=== PATIENT | female | born 1950 | race Caucasian/White ===

== ENCOUNTER 2017-02-13 09:53 | Day surgery (SDC) | payer MEDICARE, OTHER ==
[2017-02-12 11:47] LABS: HEMOGLOBIN 12.3 g/dL (12.0-16.0)
[2017-02-12 12:04] LABS: A/G RATIO 0.9 (0.7-1.9); ALBUMIN 3.3 G/DL (3.5-5.0); ALKALINE PHOSPHATASE 117 U/L (45-117); BUN (BLOOD UREA NITROGEN) 8 MG/DL (6-23); CALCIUM, SERUM 8.4 MG/DL (8.5-10.4); CHLORIDE, SERUM 101 MMOL/L (96-112); CO2 (CARBON DIOXIDE) 30 MMOL/L (24-34); CREATININE 0.69 MG/DL (0.55-1.02); GFR AFRICAN AMERICAN 106 ML/MIN (>=60); GFR NON AFRICAN AMERICAN 91 ML/MIN (>=60); GLOBULIN 3.6 G/DL (2.5-4.1); GLUCOSE, SERUM 200 MG/DL (60-99); POTASSIUM, SERUM 4.2 MMOL/L (3.5-5.3); SGOT(AST) 34 U/L (5-40); SGPT(ALT) 33 U/L (5-65); SODIUM, SERUM 139 MMOL/L (135-148); TOTAL BILIRUBIN 0.6 MG/DL (0-1.2); TOTAL PROTEIN 6.9 G/DL (6.0-8.5)
--- NOTE | ~2017-02-13 | OP ---
Record Of Operation [facility] [address] [place]. [address] NAME: JUVENTINO LOPEZ CLAY : 52 STATUS : REG [facility] PAT#: [id number] AGE: 66 ADM/REG DATE : 02/13/17 MR#: [id number] REPORT SERV DATE: 02/13/17 DICTATED BY: JULIENNE WATSON DATE: 02/13/17 REPORT STATUS : Draft TRANSCRIBED BY: MODMarlen DATE: 02/13/17 DATE OF PROCEDURE: PREOPERATIVE DIAGNOSIS: Left breast clinically inflammatory breast cancer. POSTOPERATIVE DIAGNOSIS: Left breast clinically inflammatory breast cancer. PROCEDURES: 1. Placement of a right chest wall venous port. 2. Intraoperative fluoroscopy with interpretation. 3. Intraoperative ultrasound for vein access. INDICATION FOR THE PROCEDURE: Ms Lopez is a healthy 66-year-old female, who has erythema and a large mass with palpable nodes in the left axilla. This is a clinically inflammatory breast cancer. Biopsy was performed in my office showing a node positive grade 3, ER/[place] negative, HER2 positive breast cancer with a gross fraction of over 75%. This is a very high growth rate and a very aggressive cancer. The patient has already seen Medical Oncology. She has had a PET scan showing the breast cancer as well as lymph node involvement, but no obvious metastatic disease. The patient will be starting chemotherapy on Saturday. Plan today is for port placement on the right side. OPERATIVE FINDINGS: After appropriate consent was on the chart, the patient was taken to the operating room in supine position. She was placed under monitored anesthesia without complication. The ultrasound was placed on the right neck and the right internal jugular vein noted in its normal anatomic position and patent. The bilateral chest wall and neck were prepped and draped in sterile fashion. The draped ultrasound probe was again utilized to visualize the right internal jugular vein. The soft tissue and skin overlying the vein was anesthetized with 1% lidocaine plain. A Seldinger needle was then utilized with a single pass to access the vein. Nonpulsatile venous appearing blood was noted in the syringe. The syringe was removed and the wire was passed with ease. The wire was noted to be in good position in the vena cava using fluoroscopy. The needle was removed and the wire was secured to the drapes for later use. The local anesthetic was utilized to anesthetize the port pocket. It was made with a #15 blade. Sharp dissection was carried down with Bovie cauterization. Stay sutures were placed at the 3 o'clock and 9 o'clock position of 3- 0 Prolene. These sutures were secured for later use. An 11-blade was utilized to lengthen the access site in the neck. The tunneling device was utilized to create a tunnel between the port site and the access site. The catheter was pulled through the new tunnel without issue. The dilator with sheath were then placed over the wire with constant movement of the wire. The vein was dilated. The dilator and wire were removed from the sheath leaving the sheath in the vein. The catheter was placed into the sheath without issue, and the sheath torn away. Fluoroscopy was utilized to pull the catheter tip back to the atriocaval junction. It was then cut to length at the port site and secured to the port with the securing device. The port was noted to aspirate and flush with ease. It was packed with heparinized saline. The port was secured into the port pocket with the two stay sutures. The wound was irrigated and hemostasis was achieved. A small [place] in the neck was reapproximated using a buried 4-0 Monocryl stitch. The skin was then reapproximated at the Record Of Operation [address] [address] NAME: JUVENTINO LOPEZ CLAY : 52 STATUS : REG [facility] PAT#: [id number] AGE: 66 ADM/REG DATE : 02/13/17 MR#: [id number] REPORT SERV DATE: 02/13/17 DICTATED BY: JULIENNE WATSON DATE: 02/13/17 REPORT STATUS : Draft TRANSCRIBED BY: MODL DATE: 02/13/17 port site with two layers of Monocryl. The skin was cleansed and dried. Dermabond was overlaid. The Dermabond was allowed to dry, and Telfa and Tegaderm were overlaid. The patient was awoken from anesthesia without complication, taken to the PACU in stable condition for recovery. All counts were correct at the end of the case. ESTIMATED BLOOD LOSS: 20 mL. COMPLICATIONS: None. SPECIMENS: None. A chest x-ray will be obtained in recovery to ensure no pneumo or hemothorax. The catheter tip appears to be in good position. USHA/LUPE Julienne Watson MD / [id number] CC: MD Be Wilson M.D. Michael Stipanov, M.D. [facility]
[~2017-02-13 09:53] MED LIST: AMB10 PO; ATEN25 PO; COZ50 PO; EFFEXOR XR150 MG PO; FISH-EPA1000 MG PO; GLUCPH PO; IBU-200200 MG PO; LEVSINTAB SL; ZANTAC150 MG PO
[2017-02-22] MEDS ORDERED: MD ANDERSON PO (16:09)
[2017-02-22] MEDS ORDERED: NORCO1 TA1 PO (16:10)
[2017-02-22] MEDS ORDERED: FISH OIL PO (16:10)
[2017-02-22] MEDS ORDERED: ADVIL PO (16:10)
[2017-02-22] MEDS ORDERED: AMB10 PO (16:11)
[2017-02-22] MEDS ORDERED: CHEMOTHERAPY IV (16:11)
[2017-02-22] MEDS ORDERED: BION TEARS OPH (16:11)
[2017-02-22] MEDS ORDERED: AMIT25 PO (16:12)
[2017-02-22] MEDS ORDERED: FORTAMET500 MG PO (16:12)
[2017-02-22] MEDS ORDERED: EFFEXOR XR150 MG PO (16:12)
[2017-02-22] MEDS ORDERED: COZ50 PO (16:13)
[2017-02-22] MEDS ORDERED: FLUCON2 PO (16:13)
[2017-02-22] MEDS ORDERED: ATEN50 PO (16:13)
[2017-02-22] MEDS ORDERED: EXCEDRIN EXTRA1 EACH PO (16:13)
[2017-02-22] MEDS ORDERED: SUCR PO (16:14)
[2017-02-22] MEDS ORDERED: FLAG500TAB PO (16:14)
[2017-02-22] MEDS ORDERED: LEVAQUIN750 MG PO (16:14)
[2017-02-22] MEDS ORDERED: DEX4 PO (16:15)
[2017-02-22] MEDS ORDERED: X5 PO (16:16)
[2017-02-22] MEDS ORDERED: ATV1 PO (16:16)
[2017-02-22] MEDS ORDERED: A + D OINTMENT113 GM TOP (16:16)
[2017-06-28] MEDS ORDERED: HERCEPTIN440 MG IV (15:07)
[2017-06-28] MEDS ORDERED: ULTRAM50 PO (15:08)
[2017-06-28] MEDS ORDERED: T PO (15:12)
[2017-07-04] MEDS ORDERED: PCET PO (10:40)
[2017-07-04] MEDS ORDERED: ULTRAM50 PO (10:41)
[2017-07-04] MEDS ORDERED: K500 PO (10:41)
== END 2017-02-13 15:32 | disposition home or self-care (01) ==
LOC: SDC 09:53
PROVIDERS: Surgery Surgical Oncology
PROC: B513YZA Fluoroscopy of Right Jugular Veins using Other Contrast, Guidance (ICD-10-PCS; 2017-02-13)
PROC: B543ZZA Ultrasonography of Right Jugular Veins, Guidance (ICD-10-PCS; 2017-02-13)
PROC: 05HM33Z Insertion of Infusion Device into Right Internal Jugular Vein, Percutaneous Approach (ICD-10-PCS; principal; 2017-02-13 12:30)
DX: C50.912 Malignant neoplasm of unspecified site of left female breast (principal); I10 Essential (primary) hypertension; E11.9 Type 2 diabetes mellitus without complications; G47.33 Obstructive sleep apnea (adult) (pediatric); K21.9 Gastro-esophageal reflux disease without esophagitis; K58.9 Irritable bowel syndrome, unspecified; Z90.722 Acquired absence of ovaries, bilateral; Z98.890 Other specified postprocedural states
CPT/HCPCS: 71010; 71020; 76000; 77001; 80053; 82962; 85014; 85018; 93005; C1751; J0690; J2250; J3010